=== PATIENT | male | born 1965 | race Caucasian/White ===

== ENCOUNTER → 2020-01-07 09:52 | Outpatient (BNVA) | payer OTHER, SELFPAY | PROVIDERS: Referring Provider Nurse Practitioner Family; Visit Provider Internal Medicine Gastroenterology | DX: R10.13 Epigastric pain (principal); R63.4 Abnormal weight loss | CPT/HCPCS: 85610; 99212 ==

== ENCOUNTER → 2020-04-17 14:15 | Outpatient (BNVA) | payer OTHER, SELFPAY | PROVIDERS: PCP Internal Medicine; Visit Provider Internal Medicine Gastroenterology | DX: Z76.89 Persons encountering health services in other specified circumstances (principal) ==

== ENCOUNTER → 2020-10-17 13:29 | Outpatient (BNVA) | payer OTHER, SELFPAY | PROVIDERS: PCP Internal Medicine; Visit Provider Internal Medicine Gastroenterology ==

== ENCOUNTER → 2020-12-05 13:43 | Outpatient (BNVA) | payer OTHER, SELFPAY | PROVIDERS: PCP Internal Medicine; Visit Provider Internal Medicine Gastroenterology ==

== ENCOUNTER → 2021-02-26 12:11 | Outpatient (BNVA) | payer OTHER, SELFPAY | PROVIDERS: PCP Internal Medicine; Visit Provider Internal Medicine Gastroenterology ==

== ENCOUNTER 2022-07-24 08:20 | Outpatient (REF) | payer OTHER, SELFPAY ==
--- NOTE | ~2022-07-24 | US_ITS ---
EXAMINATION: US COMPLETE ABDOMEN WITH LIVER ELASTOGRAPHY CLINICAL INFORMATION: Epigastric pain COMPARISON: Previous CT and of the abdomen and pelvis and MR of the abdomen February 2019 TECHNIQUE: Real-time imaging of the abdominal viscera. Noninvasive ultrasound liver fibrosis assessment is performed using Ty ElastPQ point quantification shear wave elastography (2D-SWE) with a C5-2 MHz transducer. Multiple elastography samples are obtained. FINDINGS: PANCREAS: Normal. The visualized pancreatic head and body are normal in appearance. The remainder of the pancreas is obscured from visualization by the overlying bowel gas. ABDOMINAL AORTA: The proximal, middle, and distal aortic segments are normal in caliber. INFERIOR VENA CAVA: Visualized portions are normal. LIVER: Normal. The liver demonstrates normal size, contour and echogenicity. No focal lesion or intrahepatic biliary duct dilatation. The right lobe measures 17 cm in length. The left lobe measures 11 cm in length. Portal flow is normal/hepatopedal Shear wave liver elastography median stiffness is 1.3 m/s (reference: normal median stiffness is 1.3 m/s or less). IQR/median stiffness to assess sampling precision is 0.09 (reference: good quality data set is IQR/median stiffness of 0.15 or less). GALLBLADDER: Normal. The gallbladder is physiologically distended without evidence of stones, sludge, polyps, wall thickening or pericholecystic fluid. COMMON BILE DUCT: Normal in caliber measuring 0.7 cm in diameter. RIGHT KIDNEY: Normal. No hydronephrosis. No renal calculi or focal parenchymal lesions. The kidney measures 10.3 cm in maximum dimension. LEFT KIDNEY: Normal. No hydronephrosis. No renal calculi or focal parenchymal lesions. The kidney measures 9.2 cm in maximum dimension. SPLEEN: Normal. The spleen measures 10 cm in maximum dimension. There is a 0.8 cm. FREE FLUID: None. US/US abdomen comp w elastography IMPRESSION: 1. Impression: unremarkable exam 2. Liver elastography: Adequate liver sampling. Normal liver stiffness. REFERENCE: Society of Radiologists in Ultrasound Liver Stiffness Thresholds (2020): LIVER STIFFNESS THRESHOLDS: *Liver Stiffness equal or less than 1.3 m/s: High probability of being normal. *Liver Stiffness less than 1.7 m/s: In the absence of other known clinical signs, rules out compensated advanced chronic liver disease. *Liver Stiffness 1.7-2.1 m/s: Suggestive of compensated advanced chronic liver disease but need further test for confirmation. *Liver Stiffness over 2.1 m/s: Rules in compensated advanced chronic liver disease. *Liver Stiffness over 2.4 m/s: Suggestive of clinically significant portal hypertension. QUALITY OF DATA SET: *IQR/Median value equal or less than 0.15 implies a quality data set. *IQR/Median value over 0.15 implies a poor quality data set. SIGNIFICANT CHANGE FROM PRIOR EXAM: Significant change if liver stiffness measurement is 10% or greater from prior exam. OTHER CONSIDERATIONS: The stage of liver fibrosis may be overestimated in the setting of acute hepatitis, liver inflammation, elevated liver function tests, hepatic vascular congestion, obstructive cholestasis, non-fasting state, and infiltrative diseases such as amyloidosis and lymphoma. In some patients with NAFLD, the liver stiffness thresholds for compensated advanced chronic liver disease may be lower. In causes other than viral hepatitis and NAFLD, liver stiffness thresholds are not well established.
== END 2022-07-24 08:21 | disposition home or self-care (01) ==
LOC: HO.US 08:20
PROVIDERS: PCP Internal Medicine; Visit Provider Internal Medicine Gastroenterology
DX: R10.13 Epigastric pain (principal)
CPT/HCPCS: 76705; 76981

== ENCOUNTER → 2022-08-16 10:15 | Outpatient (BNVA) | payer OTHER, SELFPAY | PROVIDERS: PCP Internal Medicine; Visit Provider Internal Medicine Gastroenterology | DX: R10.13 Epigastric pain (principal); R63.4 Abnormal weight loss; K60.2 Anal fissure, unspecified | CPT/HCPCS: 99212 ==

== ENCOUNTER 2022-09-10 08:26 | Outpatient (REF) | payer OTHER, SELFPAY ==
--- NOTE | ~2022-09-10 | CT_ITS ---
EXAMINATION: CT ABDOMEN AND PELVIS WITH CONTRAST CLINICAL INFORMATION: Epigastric pain COMPARISON: Previous abdominal ultrasound July [address] and MR of the abdomen from 2019 TECHNIQUE: Multidetector volumetric images were obtained from the superior aspect of the liver through the pubic symphysis following administration 85 mL of Omnipaque 350 intravenous contrast. Sagittal and coronal reformatted images were obtained on the technologist's workstation. Oral contrast: Yes This CT examination was performed using dose optimization techniques as appropriate, variously including the following: *Automated exposure control *Adjustment of mA and/or kV according to patient size (this includes techniques or standardized protocols for targeted exams where dose is matched to indication/reason for exam; i.e. extremities or head) *Use of iterative reconstruction technique DLP: 240 mGy-cm FINDINGS: LUNG BASES: Scarring or chronic subsegmental atelectasis at the lung bases similar to 2019 exam. LIVER, GALLBLADDER, AND BILIARY TREE: The liver is normal in size, shape, and attenuation. No focal hepatic lesion. No intrahepatic biliary duct dilatation. Common bile duct is upper normal in size measuring 8 mm. This is similar to previous exam. The gallbladder is unremarkable with no evidence of radiopaque gallstones, gallbladder wall thickening, or obvious pericholecystic inflammatory changes. PANCREAS: Difficult to visualize given adjacent stomach and bowel loops and paucity of intra-abdominal fat, particularly the body and tail the pancreas. Pancreas appears unremarkable. No pancreatic duct dilatation. SPLEEN: Unremarkable. ADRENAL GLANDS: Unremarkable. KIDNEYS AND URETERS: The kidneys are normal in size, shape, and attenuation. No hydronephrosis, hydroureter, or calculi seen. No perinephric stranding. BLADDER: Unremarkable. GASTROINTESTINAL TRACT: Stool throughout the colon suggestive of constipation. The small and large bowel are unremarkable. The appendix is unremarkable. Question wall or fold thickening of the proximal stomach versus changes due to underdistention. ABDOMINAL WALL: No significant hernia is appreciated. LYMPH NODES: Normal. VASCULAR: Unremarkable. PELVIC VISCERA: Unremarkable. OSSEOUS STRUCTURES: Unremarkable. CT/CT abdomen pelvis w IV con IMPRESSION: No acute findings. Constipation. Question wall or fold thickening of the proximal stomach versus changes due to underdistention. Upper normal-size common bile duct and limited visualization of the pancreas similar to prior exams. Fleischner guidelines were followed.
[2022-09-10] MEDS: iohexoL 350 MG/ML 100 ML INFUS..BTL IV (11:04)
[2022-09-10] MEDS: Barium Sulfate Oral (Mocha) 450 ML ORAL.SUSP 900 ML PO (11:05)
[2022-09-11 10:37] LABS: Creatinine POC 0.7 mg/dL (0.5-1.4); GFR POC 60
== END 2022-09-10 08:27 | disposition home or self-care (01) ==
LOC: HO.CT 08:26
PROVIDERS: PCP Internal Medicine; Visit Provider Internal Medicine Gastroenterology
DX: R10.13 Epigastric pain (principal); R63.4 Abnormal weight loss
CPT/HCPCS: 74177; 82565; Q9967

== ENCOUNTER 2022-10-02 10:56 | Day surgery (SDC) | payer OTHER, SELFPAY ==
[2022-09-30 11:24] VITALS: BMI 29.0
--- NOTE | 2022-10-01 12:46 | HO.ANESPROP2 ---
Documented by User: Sharri Fuller NP 10/01/22 12:46 HPI - Anesthesia Eval Consult details Narrative: 57yo M for Upper Endoscopy PMFSH Active Problems Active Problems: All Active Problems (Updated 09/30/22 @ 11:24 by Sandra Vasques, HERVE) Weight loss (Acute) Epigastric abdominal pain (Acute) Anal fissure (Acute) Right shoulder pain (Acute) Past Medical History Medical History Right shoulder pain Schizophrenia Weight loss Family History Family History Father No problems noted. Mother No problems noted. Surgical History Surgical History Hx of colonoscopy Hx of endoscopy Social History Social History Alcohol intake: never Patient Tobacco Use Status: Current someday Tobacco user Use of substances other than those prescribed or required for medical reasons: Yes Are you DNR?: No Advance Directives: No Advance Directives Information Provided: Yes Recently lost weight without trying: Yes How much weight loss: 34pounds or more Current occupational status: disabled Meds Allergies Allergy/AdvReac Type Severity Reaction Status Date / Time No Known Allergies Allergy Verified 02/26/21 12:12 [No Known Allergies*] Home Medications Medication Instructions Recorded Confirmed Last Taken Type adjuvant AS01B (PF)vial 1 of 2 ml IM 01/05/20 02/14/20 Unknown History (Shingrix Adjuvant Component (PF) intramuscular suspension) cholecalciferol (vitamin D3) 10 10 mcg PO DAILY 01/05/20 09/30/22 Unknown History mcg (400 unit) capsule paroxetine mesylate 20 mg tablet 20 mg PO DAILY 01/05/20 02/14/20 Unknown History quetiapine 200 mg tablet 200 mg PO BEDTIME 01/05/20 09/30/22 Unknown History vitamin B complex (Vitamins B 1 cap PO DAILY 01/05/20 09/30/22 Unknown History Complex capsule) ibuprofen 800 mg tablet 800 mg PO TID PRN pain 12/05/20 Unknown History quetiapine 100 mg tablet 100 mg PO QAM 12/05/20 09/30/22 Unknown History celecoxib 200 mg capsule 200 mg PO DAILY 08/16/22 09/30/22 Unknown History clonazepam 0.5 mg disintegrating 0.5 mg PO DAILY 08/16/22 09/30/22 Unknown History tablet hydroxyzine HCl 25 mg tablet 25 mg PO DAILY 08/16/22 09/30/22 Unknown History sertraline 100 mg tablet 100 mg PO BID 08/16/22 09/30/22 Unknown History Exam Exam Date and Time: October 01, 2022 1246 Height,Weight and Vital Signs: Height 5 ft 7 in Weight 83.915 kg Assessment and Plan Assessment Anesthesia Assessment: Chart Reviewed Documented by User: Chasidy Hernandez MD 10/02/22 11:59 [facility] Past Medical History Medical History Right shoulder pain Schizophrenia Weight loss Family History Family History Father No problems noted. Mother No problems noted. Family history of problems with anesthesia: No Surgical History Surgical History Hx of colonoscopy Hx of endoscopy History of Problems with Anesthesia: No Social History Social History Alcohol intake: never Patient Tobacco Use Status: Current someday Tobacco user Use of substances other than those prescribed or required for medical reasons: Yes Are you DNR?: No Advance Directives: No Advance Directives Information Provided: Yes Recently lost weight without trying: Yes How much weight loss: 34pounds or more Current occupational status: disabled Meds Allergies Allergy/AdvReac Type Severity Reaction Status Date / Time No Known Allergies Allergy Verified 02/26/21 12:12 [No Known Allergies*] Home Medications Medication Instructions Recorded Confirmed Last Taken Type adjuvant AS01B (PF)vial 1 of 2 ml IM 01/05/20 02/14/20 Unknown History (Shingrix Adjuvant Component (PF) intramuscular suspension) cholecalciferol (vitamin D3) 10 10 mcg PO DAILY 01/05/20 09/30/22 Unknown History mcg (400 unit) capsule paroxetine mesylate 20 mg tablet 20 mg PO DAILY 01/05/20 02/14/20 Unknown History quetiapine 200 mg tablet 200 mg PO BEDTIME 01/05/20 09/30/22 Unknown History vitamin B complex (Vitamins B 1 cap PO DAILY 01/05/20 09/30/22 Unknown History Complex capsule) ibuprofen 800 mg tablet 800 mg PO TID PRN pain 12/05/20 Unknown History quetiapine 100 mg tablet 100 mg PO QAM 12/05/20 09/30/22 Unknown History celecoxib 200 mg capsule 200 mg PO DAILY 08/16/22 09/30/22 Unknown History clonazepam 0.5 mg disintegrating 0.5 mg PO DAILY 08/16/22 09/30/22 Unknown History tablet hydroxyzine HCl 25 mg tablet 25 mg PO DAILY 08/16/22 09/30/22 Unknown History sertraline 100 mg tablet 100 mg PO BID 08/16/22 09/30/22 Unknown History Exam Airway Mallampati Class: III TM Dist: >3cm Neck ROM: Full Loose/Missing/Broken Teeth: No Heart: RRR Lungs: CTA Assessment and Plan Assessment Anesthesia Assessment: Anesthesia Plan Discussed Final Anesthetic Review Family History of Problems with Anesthesia: No History of Problems with Anesthesia: No NPO: Yes ASA Class: II Final Preanesthetic Review: Meds/Allgs Chart Reviewed, Consent Obtained/Reviewed and Anes Risks/Benef Reviewed Patient Risk: Low Procedure Risk: Intermediate Anesthetic Plan Anesthetic Plan: MAC: Disposition: Standard PACU
[2022-10-02 11:22] VITALS: BP 97/67; PULSE 56; RESP 16; TEMP 36.9; O2SAT 98
[2022-10-02 11:39] VITALS: BMI 19.3
[2022-10-02] MEDS: Lactated Ringers 1,000 ML 100 ML IVCONT (11:47)
--- NOTE | 2022-10-02 12:24 | MHC.SHP ---
Pre-Procedural Eval Section A Date of Service: 10/02/22 Section B Chief Complaint: abnormal weight loss,epigastric pain, Relevant Family History (Specify if Yes): No Relevant Social History: None Present Medications: see Short Stay Collaborative assessment Medical History: Significant History (Right shoulder pain Schizophrenia Weight loss) History of Previous Operations: Relevant previous surgery/procedure and date(s) (endoscopy) Allergies: Allergies Allergy/AdvReac Type Severity Reaction Status Date / Time No Known Allergies Allergy Verified 02/26/21 12:12 [No Known Allergies*] Review of Systems Sugical H&P ROS: Negative: Constitution, Cardiovascular, Respiratory, Neurological, Psychiatric, Hem-Onc, Allergic/Immunologic, Gastrointestinal, Genitourinary, Musculoskeletal, Integumentary, Endocrine and Eyes/Ears/Nose/Throat Exam Surgical H&P Exam: Normal: HEENT, Normal: Heart, Normal: Lungs, Normal: Extremities, Normal: Abdomen, Normal: Skin and Normal: Neurological Plan Diagnosis/Plan: Unchanged I have reviewed the history and physical and performed a pertinent physical examination on my patient. No changes have occurred unless specified. Time Spent With Patient Time: Total time managing care of this patient today ____ minutes.
--- NOTE | 2022-10-02 12:26 | W.PM.OPN ---
Operative Note Operative Note Date of Service: 10/02/22 Narrative: Procedure Description: EGD Indication: abdominal pain Anesthesia: MAC FLEXIBLE TRANSORAL UPPER GASTROINTESTINAL ENDOSCOPY UPPER ENDOSCOPY Consent: Indications for the procedure and potential complications of bleeding, perforation, reaction to medications and missed diagnosis were discussed with the patient and informed consent was obtained. Instrument: Olympus GIF H 190 J mid size upper endoscope Monitoring: Vital signs and clinical assessment, continuous EKG monitoring, Pulse oximetry, Carbon Dioxide monitoring and blood pressure monitoring were done throughout the procedure. Procedure: The patient was placed in the left lateral decubitis position and pre-procedure medications were administered and a bite block was placed. The endoscope was inserted into the mouth and advanced under direct vision to the third part of duodenum. A careful inspection was made as the upper endoscope was withdrawn including a retroflexed examination of the proximal stomach; Findings and interventions are described below. Findings: Larynx:normal Esophagus: GE junction at 42 cm, diaphragm hiatus at 42 cm, mild esophagitis with bogginess an erythema at GEJ, bx taken Stomach: Patchy gastric erythema. Biopsies were obtained. Grade 2 flap valve on retroflexed examination of the cardia. There was also reduced gastric movement. Duodenum: Normal bulb and descending duodenum, bx taken Intervention: Biopsies as noted above Impression/Findings: suspected gastroparesis (unable to do GES in the past) gastritis esophagitis PLAN: cont with omeprazole as he feels it helps gastroparesis diet
[2022-10-02 12:40] VITALS: BP 99/66; PULSE 74; RESP 18; TEMP 36.4; O2SAT 96
[2022-10-02 12:55] VITALS: BP 130/89; PULSE 59; RESP 18; TEMP 36.4; O2SAT 96
== END 2022-10-02 13:36 | disposition home or self-care (01) ==
PROVIDERS: PCP Internal Medicine; Visit Provider Internal Medicine Gastroenterology
PROC: 0DJ08ZZ Inspection of Upper Intestinal Tract, Via Natural or Artificial Opening Endoscopic (ICD-10-PCS; CPT 43235; principal; 2022-10-02 12:00)
DX: R10.13 Epigastric pain (principal); R63.4 Abnormal weight loss; Z68.29 Body mass index [BMI] 29.0-29.9, adult; K29.70 Gastritis, unspecified, without bleeding; K20.90 Esophagitis, unspecified without bleeding
CPT/HCPCS: 43239; 88305; 88342

== ENCOUNTER 2022-12-06 09:44 | Outpatient (AMB) | payer OTHER, SELFPAY ==
--- NOTE | 2022-12-06 09:46 | MHC.OFFVIS ---
Intake Vital Signs 12/06/22 09:48 Height 5 ft 7 in Weight 121 lb 4.068 oz BMI 19.0 BP 123/80 Blood Pressure Location Lt brachial Position Sitting Pulse 70 Intake Visit Reasons: S/P EGD; Dr. Baron Intake Note: Stuart presents in the office as a follow up EGD. CC: He states he has pains in his pancreas and the pharmacy will not give him any Creon. Optical Instrument Inspector Required: Yes Optical Instrument Inspector Name: [id number] Adriano Allergies No Known Allergies [No Known Allergies*] Allergy (Verified 12/06/22 09:50) HPI S/P EGD; Dr. Baron HPI Details 57 yr old m with hx of schizophrenia being seen for f/u for weight loss RECAP: Index visit--12/21/18 ? he had lost a lot of weight over 1 yr, 160---118# ? lost appetite ? diarrheal stool, no blood or melena, no recent abx, no oil drp,s easy to flush ? epigastric pain, 5-8/10 in severity ? tried omeprazole but not helping ? nausea, no vomiting ? he is on paroxetine, and seroquel for long time ? no SI, poor sleep ? denies alcohol use, drug use etc ? says checked for hiv etc in past and neg ? had ix at [facility] ? he was requesting ensure for ongoing weight loss and poor appetite which he eventually got , also got creon ? i HAD INCREASED OMEPRAZOLE TO 40 MG, ? plan for possible MRI brain fi ongoing weight loss, checking anti HU, GI autoimmune panel and G-j placement if worsening weight loss ? egd- 2012--normal ? egd 2016--- normal, small hiatal hernia\ ? colonoscopy- 2014-- diverticula, hemorrhoids. ? He was doing better and fairly stable at O/V 01/07/2020 At visit 02/2020--- taking soursop tea on advice of a friend along with creon and omeprazole, felt it was helping him felt low due to being house all the time and covid? ?i offered referral to counsellor for his general low feeling but he had a rn social work to talk to I had given him marinol due to poor appetite, his pain had reduced a lot prior to this but he never got marinol due to cost and lack of coverage ?IX: ? LABS: 12/2018--normal CBC, low vit A, CRP mildly elevated, LFT normal, ferritin normal, iron sat 18%, celiac neg, hiv neg, hep viral serologies neg, calprotectin neg, elastase 17!!!, c diff neg, UA normal ? CT_----01/2019--large amount of stool, no concerning findings otherwise ? US--01/2019--diffuse hepatic steatosis, no masses ? MRI--normal pancreas, mild prominent CBD ? MRI-02/2019-normal pancreas, cbd dilated to 9 mm ? EGD/colonoscopy--03/2019--esophagitis, gastritis, polyps removed and diverticular disease ? repeat colon 3 yrs ? bx--gastritis, adenoma ? CT chest ordered but denied by insurance, ? US abd aorta ordered to r/o SMA syndrome --was nml ? GES supsected gastroparesis, couldn;t stay for full 4 hrs ? EGD 09/09/2019--chronic esophagitis and cardia inflammation, pylorus was stretched and 200 units of botox injected US 07/2022-- nml US, I saw him 08/16/22 for gen malaise, abdominal pain, poor appetite organized EGD and CT CT: proxiaml stomach thickening, constipation, no acute findings EGD: 09/2022 suspected gastroparesis (unable to do GES in the past) gastritis esophagitis PATH: A.? Duodenum, biopsy:? Duodenal mucosa within normal limits. B.? Stomach, biopsy:? Antral-type and oxyntic mucosa with mild chronic inactive inflammation; no Helicobacter organisms seen. C.? GE junction, biopsy: - Cardiofundic-type mucosa with mild chronic inactive inflammation; no intestinal metaplasia seen. - Squamous mucosa within normal limits. D.? Esophagus, distal, biopsy:? Squamous epithelium within normal limits; no inflammation seen. ?? INTERIM: He has noted some improvement in his symptoms reviewed EGD and CT results with patient, no acute findings he feels the omeprazole is helping him appetite is still poor, food has no taste he still has nausea he does have headaches with depression denies visual problems he still has epigastric discomfort EXAM: GENERAL: The patient is thin VITAL SIGNS:see workflow HEENT: Nonicteric sclerae, PERRLA, EOMI. Oropharynx clear. Moist mucous membranes. Conjunctivae appear well perfused. No thyroid mass. CHEST: Chest wall is nontender. HEART: Regular rate and rhythm without murmurs. LUNGS: Clear to auscultation bilaterally. ABDOMEN: Soft, positive bowel sounds, tender epigastrium, no organomegaly.no flank tenderness SKIN: No rash, no excessive bruising, petechiae, or purpura. NEUROLOGIC: Cranial nerves II-XII intact without motor/sensory deficit. Assessment & Plan (1) Epigastric abdominal pain:-neg CT and EGD, could be gastroparesis, unable to tolerate GES PLAN: 1/ trial of nizatadine, if neg then maybe pyridostigmine --cont with gastroparesis diet 2/ if ongoing sx then CT head --check prolactin levels etc PFSH Medical History Right shoulder pain Schizophrenia Weight loss Surgical History Hx of colonoscopy Hx of endoscopy Family History Father No problems noted. Mother No problems noted. Social History Alcohol intake: never Patient Tobacco Use Status: Current someday Tobacco user Current occupational status: disabled Assessment & Plan Assessment & Plan (1) Epigastric abdominal pain: Code(s): R10.13 - Epigastric pain Medications: New nizatidine 300 mg PO BEDTIME 30 caps 3RF Coding Level of Care Code Est Pt Level 3 (45310) Diagnoses Epigastric abdominal pain R10.13
[2022-12-06 09:48] VITALS: BP 123/80; PULSE 70; BMI 19.0
== END 2022-12-06 10:09 | disposition home or self-care (01) ==
PROVIDERS: PCP Internal Medicine; Visit Provider Internal Medicine Gastroenterology
DX: R10.13 Epigastric pain (principal)
CPT/HCPCS: 99213

== ENCOUNTER → 2022-12-06 09:44 | Outpatient (BNVA) | payer OTHER, SELFPAY | PROVIDERS: PCP Internal Medicine; Visit Provider Internal Medicine Gastroenterology | DX: R10.13 Epigastric pain (principal) | CPT/HCPCS: 99212 ==

== ENCOUNTER 2023-10-31 11:24 | Outpatient (AMB) | payer OTHER, SELFPAY ==
--- NOTE | 2023-10-31 11:29 | MHC.OFFVIS ---
Vital Signs 10/31/23 11:34 Height 5 ft 7 in Weight 123 lb 7.342 oz BMI 19.3 BP 127/83 Blood Pressure Location Lt brachial Position Sitting Pulse 95 Intake Visit Reasons: f/u reschedule from 09/25 Intake Note: Stuart presents in the office as a follow up. CC: He states that he is having pains in his pancreas. He feels ill from his pancrea and none of the pills seem to be working for him. HE states that he has no refills with his medications. Relocation Commissioner Required: Yes Relocation Commissioner Name: Hayden [id number] Allergies No Known Allergies [No Known Allergies*] Allergy (Verified 10/31/23 11:42) HPI HPI f/u reschedule from 09/25: Details: 58 yr old m with hx of schizophrenia being seen for f/u for weight loss RECAP: Index visit--12/21/18 he had lost a lot of weight over 1 yr, 160---118# lost appetite diarrheal stool, no blood or melena, no recent abx, no oil drp,s easy to flush epigastric pain, 5-8/10 in severity tried omeprazole but not helping nausea, no vomiting he is on paroxetine, and seroquel for long time no SI, poor sleep denies alcohol use, drug use etc says checked for hiv etc in past and neg had ix at [facility] he was requesting ensure for ongoing weight loss and poor appetite which he eventually got , also got creon i HAD INCREASED OMEPRAZOLE TO 40 MG, plan for possible MRI brain fi ongoing weight loss, checking anti HU, GI autoimmune panel and G-j placement if worsening weight loss egd- 2012--normal egd 2016--- normal, small hiatal hernia\ colonoscopy- 2014-- diverticula, hemorrhoids. He was doing better and fairly stable at O/V 01/07/2020 At visit 02/2020--- taking soursop tea on advice of a friend along with creon and omeprazole, felt it was helping him felt low due to being house all the time and covid i offered referral to counsellor for his general low feeling but he had a medical social consultant to talk to I had given him marinol due to poor appetite, his pain had reduced a lot prior to this but he never got marinol due to cost and lack of coverage IX: LABS: 12/2018--normal CBC, low vit A, CRP mildly elevated, LFT normal, ferritin normal, iron sat 18%, celiac neg, hiv neg, hep viral serologies neg, calprotectin neg, elastase 17!!!, c diff neg, UA normal CT_----01/2019--large amount of stool, no concerning findings otherwise US--01/2019--diffuse hepatic steatosis, no masses MRI--normal pancreas, mild prominent CBD MRI-02/2019-normal pancreas, cbd dilated to 9 mm EGD/colonoscopy--03/2019--esophagitis, gastritis, polyps removed and diverticular disease repeat colon 3 yrs bx--gastritis, adenoma CT chest ordered but denied by insurance, US abd aorta ordered to r/o SMA syndrome --was nml GES supsected gastroparesis, couldn;t stay for full 4 hrs EGD 09/09/2019--chronic esophagitis and cardia inflammation, pylorus was stretched and 200 units of botox injected US 07/2022-- nml US, I saw him 08/16/22 for gen malaise, abdominal pain, poor appetite organized EGD and CT CT: proxiaml stomach thickening, constipation, no acute findings EGD: 09/2022 suspected gastroparesis (unable to do GES in the past) gastritis esophagitis PATH: A. Duodenum, biopsy: Duodenal mucosa within normal limits. B. Stomach, biopsy: Antral-type and oxyntic mucosa with mild chronic inactive inflammation; no Helicobacter organisms seen. C. GE junction, biopsy: - Cardiofundic-type mucosa with mild chronic inactive inflammation; no intestinal metaplasia seen. - Squamous mucosa within normal limits. D. Esophagus, distal, biopsy: Squamous epithelium within normal limits; no inflammation seen. INTERIM: He feels his pancreas is hurting he has discomfort mostly right flank and rlq area he wants to get prostate checked as well appetite is fair occ diarrhea and constipation denies urine sx he takes THC sometimes he felt the nizatidine helped a lot EXAM: GENERAL: The patient is thin VITAL SIGNS:see workflow HEENT: Nonicteric sclerae, PERRLA, EOMI. Oropharynx clear. Moist mucous membranes. Conjunctivae appear well perfused. No thyroid mass. CHEST: Chest wall is nontender. HEART: Regular rate and rhythm without murmurs. LUNGS: Clear to auscultation bilaterally. ABDOMEN: Soft, positive bowel sounds, tender epigastrium, no organomegaly.no flank tenderness SKIN: No rash, no excessive bruising, petechiae, or purpura. NEUROLOGIC: Cranial nerves II-XII intact without motor/sensory deficit. Assessment & Plan (1) RIght flank pain, uncertain etiology PLAN: 1/ US abdo 2/ refill H2 barry 3/ UA and labs, PSA 4/ refill ensure PFSH Medical History Schizophrenia Weight loss Right shoulder pain Surgical History Hx of endoscopy Hx of colonoscopy Family History Father No problems noted. Mother No problems noted. Social History Alcohol intake: never Patient Tobacco Use Status: Current someday Tobacco user Current occupational status: disabled Physical Exam Vital Signs: Last Vital Signs Pulse 95 10/31/23 11:34 BP 127/83 10/31/23 11:34 BMI result Body Mass Index 19.3 Assessment & Plan Assessment & Plan (1) Epigastric abdominal pain: Code(s): R10.13 - Epigastric pain Category: Medical Plan: see above (2) Weight loss: Code(s): R63.4 - Abnormal weight loss Category: Medical Plan: see above (3) Urine frequency: Code(s): R35.0 - Frequency of micturition Category: Medical Plan: as above Orders: Orders US abdomen comp w elastography Today R10.13 - Epigastric pain, R63.4 - Abnormal weight loss UA CC w/rflx Micro + Cult Today R10.13 - Epigastric pain, R30.0 - Dysuria, R63.4 - Abnormal weight loss Comprehensive Met. Panel Today K75.81 - Nonalcoholic steatohepatitis (GRIFFITH), R10.13 - Epigastric pain, R63.4 - Abnormal weight loss TSH reflex Free T4 Today R63.4 - Abnormal weight loss PSA,Total (Free>4and<10) Today R35.0 - Frequency of micturition Complete Blood Count Auto Diff Today R10.13 - Epigastric pain, R63.4 - Abnormal weight loss PSA, Ultra Sensitive Today R35.0 - Frequency of micturition Medications: Refilled food supplemt, lactose-reduced (Ensure High Protein oral liquid) Drink one 237ml bottle by mouth three times a day 1 ea PO TID 30 days 237 mL 11RF nizatidine 300 mg PO BEDTIME 30 caps 3RF Coding Level of Care Code Est Pt Level 4 (53917) Diagnoses Epigastric abdominal pain R10.13 Weight loss R63.4 Urine frequency R35.0
[2023-10-31 11:34] VITALS: BP 127/83; PULSE 95; BMI 19.3
== END 2023-10-31 12:04 | disposition home or self-care (01) ==
PROVIDERS: PCP Internal Medicine; Visit Provider Internal Medicine Gastroenterology
DX: R10.13 Epigastric pain (principal); R63.4 Abnormal weight loss; R35.0 Frequency of micturition
CPT/HCPCS: 99214

== ENCOUNTER → 2023-10-31 11:24 | Outpatient (BNVA) | payer OTHER, SELFPAY | PROVIDERS: PCP Internal Medicine; Visit Provider Internal Medicine Gastroenterology | DX: R10.13 Epigastric pain (principal); R63.4 Abnormal weight loss; R35.0 Frequency of micturition | CPT/HCPCS: 99212 ==

== ENCOUNTER 2023-11-18 08:13 | Outpatient (REF) | payer OTHER, SELFPAY ==
--- NOTE | ~2023-11-18 | US_ITS ---
EXAMINATION: US COMPLETE ABDOMEN WITH LIVER ELASTOGRAPHY CLINICAL INFORMATION: Epigastric and right flank pain; weight loss; nonalcoholic steatohepatitis. COMPARISON: CT abdomen and pelvis dated 09/10/2022; abdominal ultrasound dated 07/24/2022; MRI abdomen dated 02/10/2019. TECHNIQUE: Real-time imaging of the abdominal viscera. Noninvasive ultrasound liver fibrosis assessment is performed using Ty ElastPQ point quantification shear wave elastography (pSWE) with a C5-2 MHz transducer. Multiple elastography samples are obtained. FINDINGS: PANCREAS: Normal. The visualized pancreatic head and body are normal in appearance. The remainder of the pancreas is obscured from visualization by the overlying bowel gas. ABDOMINAL AORTA: The proximal, middle, and distal aortic segments are normal in caliber. INFERIOR VENA CAVA: Visualized portions are normal. LIVER: Normal. The liver demonstrates normal size, contour and echogenicity. No focal lesion or intrahepatic biliary duct dilatation. The right lobe measures 16.8 cm in length. The left lobe measures 10.1 cm in length. Portal flow is towards the liver (hepatopetal). Shear wave liver elastography median stiffness is 1.76 m/s (reference: normal median stiffness is 1.3 m/s or less). IQR/median stiffness to assess sampling precision is 0.10 (reference: good quality data set is IQR/median stiffness of 0.15 or less). GALLBLADDER: Normal. The gallbladder is physiologically distended without evidence of stones, sludge, polyps, wall thickening or pericholecystic fluid. COMMON BILE DUCT: Borderline increased in caliber measuring 0.8 cm in diameter. This is stable from prior examinations including the MRI abdomen dated 02/10/2019. RIGHT KIDNEY: Normal. No hydronephrosis. No renal calculi or focal parenchymal lesions. The kidney measures 10.7 cm in maximum dimension. LEFT KIDNEY: Normal. No hydronephrosis. No renal calculi or focal parenchymal lesions. The kidney measures 10.7 cm in maximum dimension. SPLEEN: Normal. The spleen measures 9.3 cm in maximum dimension. FREE FLUID: None. US/US abdomen comp w elastography IMPRESSION: 1. Liver elastography: Measurements are suggestive of compensated advanced chroniic liver disease but need further test for confirmation. When compared with prior exam, there is a statistically significant increase in liver stiffness (increase at least 10%). 2. There is chronic borderline increase in common bile duct caliber to 0.8 cm, unchanged from prior examinations including the MRI abdomen dated 02/10/2019 REFERENCE: Society of Radiologists in Ultrasound Liver Stiffness Thresholds (2020): LIVER STIFFNESS THRESHOLDS: *Liver Stiffness equal or less than 1.3 m/s: High probability of being normal. *Liver Stiffness less than 1.7 m/s: In the absence of other known clinical signs, rules out compensated advanced chronic liver disease. *Liver Stiffness 1.7-2.1 m/s: Suggestive of compensated advanced chronic liver disease but need further test for confirmation. *Liver Stiffness over 2.1 m/s: Rules in compensated advanced chronic liver disease. *Liver Stiffness over 2.4 m/s: Suggestive of clinically significant portal hypertension. QUALITY OF DATA SET: *IQR/Median value equal or less than 0.15 implies a quality data set. *IQR/Median value over 0.15 implies a poor quality data set. SIGNIFICANT CHANGE FROM PRIOR EXAM: Significant change if liver stiffness measurement is 10% or greater from prior exam. OTHER CONSIDERATIONS: The stage of liver fibrosis may be overestimated in the setting of acute hepatitis, liver inflammation, elevated liver function tests, hepatic vascular congestion, obstructive cholestasis, non-fasting state, and infiltrative diseases such as amyloidosis and lymphoma. In some patients with NAFLD, the liver stiffness thresholds for compensated advanced chronic liver disease may be lower. In causes other than viral hepatitis and NAFLD, liver stiffness thresholds are not well established. Electronically signed by: Jl Varela MD 12/10/2023 10:52 AM EDT
== END 2023-11-18 08:14 | disposition home or self-care (01) ==
LOC: HO.US 08:13
PROVIDERS: Visit Provider Internal Medicine Gastroenterology
DX: R10.13 Epigastric pain (principal); R63.4 Abnormal weight loss
CPT/HCPCS: 76700; 76981

== ENCOUNTER 2024-02-16 09:16 | Outpatient (AMB) | payer OTHER, SELFPAY ==
--- NOTE | 2024-02-16 09:19 | MHC.OFFVIS ---
Vital Signs 02/16/24 09:22 Height 5 ft 7 in Weight 127 lb 13.89 oz BMI 20.0 BP 120/87 Blood Pressure Location Lt brachial Position Sitting Pulse 67 Intake Visit Reasons: 4 month follow up Intake Note: Stuart presents in the office as a 4 month follow up. CC: He states that he is having a little pain where his pancreas is. He denies irregular bowel movements. Production Lapping Machine Operator Required: Yes Production Lapping Machine Operator Name: [id number] Pardeep Allergies No Known Allergies [No Known Allergies*] Allergy (Verified 02/16/24 09:27) HPI HPI 4 month follow up: Details: 58 yr old m with hx of schizophrenia being seen for f/u for weight loss RECAP: Index visit--12/21/18 he had lost a lot of weight over 1 yr, 160---118# lost appetite diarrheal stool, no blood or melena, no recent abx, no oil drp,s easy to flush epigastric pain, 5-8/10 in severity tried omeprazole but not helping nausea, no vomiting he is on paroxetine, and seroquel for long time no SI, poor sleep denies alcohol use, drug use etc says checked for hiv etc in past and neg had ix at [facility] he was requesting ensure for ongoing weight loss and poor appetite which he eventually got , also got creon i HAD INCREASED OMEPRAZOLE TO 40 MG, plan for possible MRI brain fi ongoing weight loss, checking anti HU, GI autoimmune panel and G-j placement if worsening weight loss egd- 2012--normal egd 2016--- normal, small hiatal hernia\ colonoscopy- 2014-- diverticula, hemorrhoids. He was doing better and fairly stable at O/V 01/07/2020 At visit 02/2020--- taking soursop tea on advice of a friend along with creon and omeprazole, felt it was helping him felt low due to being house all the time and covid i offered referral to counsellor for his general low feeling but he had a social worker psychiatric to talk to I had given him marinol due to poor appetite, his pain had reduced a lot prior to this but he never got marinol due to cost and lack of coverage IX: LABS: 12/2018--normal CBC, low vit A, CRP mildly elevated, LFT normal, ferritin normal, iron sat 18%, celiac neg, hiv neg, hep viral serologies neg, calprotectin neg, elastase 17!!!, c diff neg, UA normal CT_----01/2019--large amount of stool, no concerning findings otherwise US--01/2019--diffuse hepatic steatosis, no masses MRI--normal pancreas, mild prominent CBD MRI-02/2019-normal pancreas, cbd dilated to 9 mm EGD/colonoscopy--03/2019--esophagitis, gastritis, polyps removed and diverticular disease repeat colon 3 yrs bx--gastritis, adenoma CT chest ordered but denied by insurance, US abd aorta ordered to r/o SMA syndrome --was nml GES supsected gastroparesis, couldn;t stay for full 4 hrs EGD 09/09/2019--chronic esophagitis and cardia inflammation, pylorus was stretched and 200 units of botox injected US 07/2022-- nml US, I saw him 08/16/22 for gen malaise, abdominal pain, poor appetite organized EGD and CT CT: proxiaml stomach thickening, constipation, no acute findings EGD: 09/2022 suspected gastroparesis (unable to do GES in the past) gastritis esophagitis PATH: A. Duodenum, biopsy: Duodenal mucosa within normal limits. B. Stomach, biopsy: Antral-type and oxyntic mucosa with mild chronic inactive inflammation; no Helicobacter organisms seen. C. GE junction, biopsy: - Cardiofundic-type mucosa with mild chronic inactive inflammation; no intestinal metaplasia seen. - Squamous mucosa within normal limits. D. Esophagus, distal, biopsy: Squamous epithelium within normal limits; no inflammation seen. US 11/28- nml kidneys increase in liver elastography mild chronic dilated CBD INTERIM: he wants to change PPI, feels omeprazole is not that good appetite is better with smoking getting the protein shakes He feels his pancreas is hurting he has discomfort mostly right flank and rlq area he wants to get prostate checked as well appetite is fair occ diarrhea and constipation denies urine sx he takes THC sometimes he felt the nizatidine helped a lot EXAM: GENERAL: The patient is thin VITAL SIGNS:see workflow HEENT: Nonicteric sclerae, PERRLA, EOMI. Oropharynx clear. Moist mucous membranes. Conjunctivae appear well perfused. No thyroid mass. CHEST: Chest wall is nontender. HEART: Regular rate and rhythm without murmurs. LUNGS: Clear to auscultation bilaterally. ABDOMEN: Soft, positive bowel sounds, tender epigastrium, no organomegaly.no flank tenderness SKIN: No rash, no excessive bruising, petechiae, or purpura. NEUROLOGIC: Cranial nerves II-XII intact without motor/sensory deficit. Assessment & Plan (1) Abn elastography liver, last LFT nml, need recheck 2/ GERD PLAN: 1/ change to esomeprazole 2/ recheck labs today incl PSA , UA PFSH Medical History Schizophrenia Weight loss Right shoulder pain Surgical History Hx of endoscopy Hx of colonoscopy Family History Father No problems noted. Mother No problems noted. Social History Alcohol intake: never Patient Tobacco Use Status: Current someday Tobacco user Current occupational status: disabled Physical Exam Vital Signs: Last Vital Signs Pulse 67 02/16/24 09:22 BP 120/87 02/16/24 09:22 BMI result Body Mass Index 20.0 Assessment & Plan Assessment & Plan (1) Epigastric abdominal pain: Code(s): R10.13 - Epigastric pain Category: Medical Plan: see above Medications: Discontinued omeprazole Discontinued Reason: Doctor's Order 40 mg PO DAILY 30 caps 1RF Coding Level of Care Code Est Pt Level 3 (14464) Diagnoses Epigastric abdominal pain R10.13
[2024-02-16 09:22] VITALS: BP 120/87; PULSE 67
== END 2024-02-16 10:02 | disposition home or self-care (01) ==
PROVIDERS: PCP Internal Medicine; Visit Provider Internal Medicine Gastroenterology
DX: R10.13 Epigastric pain (principal)
CPT/HCPCS: 99213

== ENCOUNTER → 2024-02-16 09:16 | Outpatient (BNVA) | payer OTHER, SELFPAY | PROVIDERS: PCP Internal Medicine; Visit Provider Internal Medicine Gastroenterology | DX: R10.13 Epigastric pain (principal) | CPT/HCPCS: 99212 ==